=== PATIENT | male | born 1965 | race Caucasian/White ===

== ENCOUNTER 2016-05-24 09:28 | Emergency (ER) | payer MEDICAID ==
--- NOTE | 2016-05-24 09:53 | EDM.PDOC ---
ED HPI GENERAL MEDICAL PROBLEM - General Chief Complaint: ENT Problem Stated Complaint: EAR Time Seen by Provider: 05/24/16 09:39 - History of Present Illness INITIAL COMMENTS - FREE TEXT/NARRATIVE: HISTORY AND PHYSICAL: History of present illness: The patient is a 50-year-old male with a history of hypertension who presents with on and off sensation of a "swishing" in his right ear. He doesn't have pain specifically there and has had no drainage and no trauma to the area and he says it's not constant but it does come and go. He has no headache blurred vision or sore throat. Patient also states he doesn't have her provider here locally and needs a refill on his antihypertensive medication. Patient also says that he needs urology followup because he was told that he had a spot on his kidney on a prior CAT scan that needs reevaluation and he was unable to make an appointment without a "referral". He has no current abdominal pain vomiting or diarrhea and no urinary complaints. Review of systems: As per history of present illness and below otherwise all systems reviewed and negative. Past medical history: As per history of present illness and as reviewed below otherwise noncontributory. Surgical history: As per history of present illness and as reviewed below otherwise noncontributory. Social history: No reported history of drug or alcohol abuse. Family history: As per history of present illness and as reviewed below otherwise noncontributory. Physical exam: General: Well-developed overweight male who is nontoxic and speaking clearly and easily in the ED. HEENT: Atraumatic, normocephalic, pupils reactive, negative for conjunctival pallor or scleral icterus, mucous membranes moist, throat clear, neck supple, nontender, trachea midline. TMs are normal bilaterally with good light reflex, no inflammation or debris in the canal no mastoid tenderness and no discomfort with exam. Specifically the right ear demonstrates no evidence of a chronic or new perforation. There is no cervical adenopathy or nuchal rigidity Lungs: Clear to auscultation, breath sounds equal bilaterally, chest nontender. Heart: S1S2, regular, negative for clicks, rubs, or JVD. Abdomen: Soft, nondistended, nontender. NABS Genitourinary: Deferred. Rectal: Deferred. Extremities: Atraumatic, negative for cords or calf pain. Neurovascular unremarkable. Neuro: Awake, alert, oriented. Cranial nerves II through XII unremarkable. Cerebellum unremarkable. Motor and sensory unremarkable throughout. Exam nonfocal. Diagnostics: [] Therapeutics: [] I discussed with the patient that I do not see anything clinically that would cause his ear symptoms and that he could followup with her ENT physician. I will give him that referral information. I will also give him referral to our clinic as well as [facility] and urology to address his nonemergent complaints. I will refill his Avapro but recommended that he get connected with primary care to get future refills Impression: Right ear complains stable, medication refill Definitive disposition and diagnosis as appropriate pending reevaluation and review of above. - Related Data Allergies Allergy/AdvReac Type Severity Reaction Status Date / Time Penicillins Allergy Other Verified 05/24/16 09:47 Home Meds: Home Meds Irbesartan [Avapro] 300 mg PO DAILY 05/24/16 [History] Past Medical History Cardiovascular History: Reports: Hypertension Social & Family History - Tobacco Use Smoking Status *Q: Never Smoker Second Hand Smoke Exposure: No - Alcohol Use Days Per Week of Alcohol Use: 0 - Recreational Drug Use Recreational Drug Use: No ED ROS GENERAL - Review of Systems Review Of Systems: ROS reveals no pertinent complaints other than HPI. ED EXAM, GENERAL - Physical Exam Exam: See Below (See dictation) Course - Vital Signs Last Recorded V/S: Last Vital Signs Temp 36.7 C 05/24/16 09:39 Pulse 78 05/24/16 09:39 Resp 16 05/24/16 09:39 BP 135/80 05/24/16 09:39 Pulse Ox 98 05/24/16 09:39 Departure - Departure Time of Disposition: 09:52 Disposition: Home, Self-Care 01 Condition: good Clinical Impression: Otalgia of right ear, Medication refill Forms: ED Department Discharge Additional Instructions: The following information is given to patients seen in the emergency department who are being discharged to home. This information is to outline your options for follow-up care. We provide all patients seen in our emergency department with a follow-up referral. The need for follow-up, as well as the timing and circumstances, are variable depending upon the specifics of your emergency department visit. If you don't have a primary care physician on staff, we will provide you with a referral. We always advise you to contact your personal physician following an emergency department visit to inform them of the circumstance of the visit and for follow-up with them and/or the need for any referrals to a consulting specialist. The emergency department will also refer you to a specialist when appropriate. This referral assures that you have the opportunity for followup care with a specialist. All of these measure are taken in an effort to provide you with optimal care, which includes your followup. Under all circumstances we always encourage you to contact your private physician who remains a resource for coordinating your care. When calling for followup care, please make the office aware that this follow-up is from your recent emergency room visit. If for any reason you are refused follow-up, please contact the [facility] emergency department at and ask to speak to the emergency department charge nurse. [facility] [address] [place] [id number] [id number] [facility] [address] [place] [id number] [facility] [address] [place] [id number] Please call and make the appropriate followups as we talked about and take care of blood pressure medication as prescribed. Return to ER as needed and as discussed.
== END 2016-05-24 09:59 | disposition home or self-care (01) ==
LOC: MW.ED 09:28
CPT/HCPCS: 99282